=== PATIENT | female | born 1950 | race Caucasian/White ===

== ENCOUNTER 2020-03-26 14:45 | Emergency (ER) | payer MEDICARE ==
--- NOTE | 2020-03-26 16:03 | CT ---
EXAMINATION TYPE: CT brain wo con DATE OF EXAM: 03/26/2020 HISTORY: Fall today with posterior injury. CT DLP: 1217.4 mGycm. Automated Exposure Control for Dose Reduction was Utilized. TECHNIQUE: CT scan of the head is performed without contrast. COMPARISON: None. FINDINGS: There is no acute intracranial hemorrhage or midline shift identified. There is diffuse v entricular and sulcal prominence consistent with diffuse age-related cerebral atrophy. There is low- attenuation in the periventricular white matter consistent with chronic small vessel ischemic change. Mild mucosal thickening visualized right maxillary sinus. Patchy secretions posteriorly left sphenoi d sinus with mild mucosal thickening. Moderate-sized high right parietal acute scalp hematoma. The calvarium is intact. IMPRESSION: No acute intracranial hemorrhage or midline shift. There is mild to moderate diffuse ce rebral atrophy and chronic small vessel ischemic change noted. Moderate-sized high acute right seb etal scalp hematoma.
[2020-03-26] MEDS ORDERED: KETOROLAC 15 MG/ML 1 ML VIAL IM STA (16:17)
--- NOTE | 2020-03-26 16:30 | ED ---
Fall HPI - General Chief Complaint: Fall Stated Complaint: Fall/Afib Time Seen by Provider: 03/26/20 15:16 Source: patient, EMS Mode of arrival: EMS - History of Present Illness Initial Comments: Patient is a 70-year-old female presenting to the emergency department after a fall. Patient's is here with her now. Patient states she tripped on a curb and fell backwards hitting the back of her head on cement. They were concerned because patient recently started [employer] and irrigated A. fib. Patient states she does have a headache and has a pretty large knots in the back of her head. She describes her headache as a 5/10 mostly in the back of her head. Patient denies any loss of consciousness, nausea or vomiting. She states she does have a little bit of blurry vision however this is normal for her as she had a cataract fixed in one eye and a different problem and the other ice and she's been dealing with blurry vision for a while now. She denies pain anywhere else including no chest pain, shortness of breath. She denies any abdominal pain or lower extremity pain. She has no further complaints at this time. - Related Data Home Medications Medication Instructions Recorded Confirmed Albuterol Inhaler [Ventolin Hfa 2 puff INHALATION RT-Q4H PRN 03/26/20 03/26/20 Inhaler] Apixaban [Eliquis] 5 mg PO BID 03/26/20 03/26/20 Cetirizine HCl [Zyrtec] 10 mg PO DAILY 03/26/20 03/26/20 FLUoxetine HCL [PROzac] 40 mg PO DAILY 03/26/20 03/26/20 Losartan Potassium [Cozaar] 100 mg PO DAILY 03/26/20 03/26/20 Montelukast Sodium [Singulair] 10 mg PO HS 03/26/20 03/26/20 hydroCHLOROthiazide [Hydrodiuril] 25 mg PO DAILY 03/26/20 03/26/20 Allergies Allergy/AdvReac Type Severity Reaction Status Date / Time No Known Allergies Allergy Verified 03/26/20 17:09 Review of Systems ROS Statement: Those systems with pertinent positive or pertinent negative responses have been documented in the HPI. ROS Other: All systems not noted in ROS Statement are negative. Past Medical History Past Medical History: Atrial Fibrillation, Asthma, Hypertension History of Any Multi-Drug Resistant Organisms: None Reported Additional Past Surgical History / Comment(s): cataract surgery Past Psychological History: No Psychological Hx Reported Smoking Status: Never smoker Past Alcohol Use History: Occasional Past Drug Use History: None Reported General Exam - General Exam Comments Initial Comments: GENERAL: Patient is well-developed and well-nourished. Patient is nontoxic and in no acute distress. HEAD: There is a moderate size hematoma on the posterior scalp, right side. EYES: Pupils equal round and reactive to light, extraocular movements intact, sclera anicteric, conjunctiva are normal. Eyelids were unremarkable. ENT: TMs normal, nares patent, oropharynx clear without exudates. Moist mucous membranes. NECK: Normal range of motion, supple without lymphadenopathy or JVD. LUNGS: Unlabored respirations. Breath sounds clear to auscultation bilaterally and equal. No wheezes rales or rhonchi. HEART: Regular rate and rhythm without murmurs, rubs or gallops. ABDOMEN: Soft, nontender, normoactive bowel sounds. No guarding, no rebound. No masses appreciated. : Deferred MUSCULOSKELETAL: Normal extremities with adequate strength and normal range of motion, no pitting or edema. No clubbing or cyanosis. NEUROLOGICAL: Patient is alert and oriented x 3. Motor and sensory are also intact. Cranial nerves II through XII grossly intact. Symmetrical smile. Normal speech, normal gait. PSYCH: Normal mood, normal affect. SKIN: Warm, Dry, normal turgor, no rashes or lesions noted. Limitations: no limitations Course Vital Signs 03/26/20 03/26/20 03/26/20 15:12 16:39 17:20 Temperature 98.6 F 98.2 F Pulse Rate 102 H 82 Respiratory 16 16 Rate Blood Pressure 141/98 118/65 116/107 O2 Sat by Pulse 98 98 98 Oximetry Medical Decision Making - Medical Decision Making Patient is a 70-year-old female here after hitting the back of her head on cement. She is on Eliquis secondary to A. fib. Patient's exam is unremarkable. Patient does have a bit of blurry vision however she states this is normal. She does not have her glasses with her right now. Computed tomography scan shows no acute bleeds, masses, midline shift. Patient does have a headache. I did give her Toradol. She states her headache has improved to a tolerable level. Patient states she is wanting to go home. She continues to deny any vomiting, dizziness. She states she feels okay. Patient will follow up with her PCP. She is stable for discharge. Return parameters were discussed with the patient and she verbalized understanding. Case discussed with Dr. Noriega. Disposition Clinical Impression: Fall, Scalp hematoma Disposition: HOME SELF-CARE Condition: Stable Instructions (If sedation given, give patient instructions): Hematoma (ED) Additional Instructions: Please return to the Emergency Department if symptoms worsen or any other concerns. May alternate between Tylenol and Advil for headache. Follow-up with PCP. Is patient prescribed a controlled substance at d/c from ED?: No Referrals: Nonstaff,Physician [Primary Care Provider] - 1-2 days
[2020-03-26 17:49] VITALS: BP 138/104; PULSE 68; RESP 18; TEMP 98.6
== END 2020-03-26 17:45 | disposition home or self-care (01) ==
LOC: EC 14:45
DX: S00.03XA Contusion of scalp, initial encounter (principal); I48.91 Unspecified atrial fibrillation; J45.909 Unspecified asthma, uncomplicated; I10 Essential (primary) hypertension; Z79.01 Long term (current) use of anticoagulants; Z79.899 Other long term (current) drug therapy; Z98.49 Cataract extraction status, unspecified eye; W01.198A Fall on same level from slipping, tripping and stumbling with subsequent striking against other object, initial encounter; Y93.01 Activity, walking, marching and hiking
CPT/HCPCS: 70450; 99284; 96372; J1885